=== PATIENT | female | born 1965 | race Two or more races ===

== ENCOUNTER 2024-05-11 11:42 | Emergency (ER) | payer BC ==
[~2024-05-11] VITALS: Ht 162.6 cm; Wt 73.0 kg
[2024-05-11] MEDS: SUCCINYLCHOLINE CHLORIDE 200MG/10ML IV ONE (11:47)
[2024-05-11] MEDS: ETOMIDATE 2MG/ML 10ML VIAL IV ONE (11:47)
[2024-05-11] MEDS ORDERED: MIDAZOLAM HCL 100 MG in DEXT 5% WATER 80 ML IV ONE (12:00)
[2024-05-11] MEDS ORDERED: FENTANYL 2500MCG/250ML PMX 250 ML IV ONE (12:00)
[2024-05-11] MEDS: SODIUM CHLORIDE 0.9% 500 ML IV ONE (12:09)
[2024-05-11 12:13] LABS: HEMATOCRIT. 40.2 % (36.0-48.0); MEAN CORPUSCULAR HEMOGLOBIN 35.8 pg (28.0-32.0); MEAN CORPUSCULAR HGB CONC 32.4 g/dL (31.0-37.0); MEAN CORPUSCULAR VOLUME 110.3 fL (81.0-99.0); MEAN PLATELET VOLUME 8.2 fl (7.4-10.4); PLATELET 272 x1000/uL (130-400); RED BLOOD CELL COUNT 3.65 mill/uL (4.2-5.4); RED CELL DISTRIBUTION WIDTH 14.2 % (11.6-14.6); WHITE BLOOD COUNT 14.7 x1000/uL (4.5-11.0)
[2024-05-11 12:24] LABS: INR 0.9; PARTIAL THROMBOPLASTIN TIME 27.7 sec (23.4-31.0); PROTHROMBIN TIME 10.3 sec (9.6-11.0)
[2024-05-11 12:25] LABS: CHLORIDE 109 mEq/L (98-107); POTASSIUM 3.8 mEq/L (3.5-5.1); SODIUM 141 mEq/L (136-145)
[2024-05-11 12:26] LABS: CALCIUM 9.2 mg/dL (8.7-10.4); CARBON DIOXIDE 14 mEq/L (21-32)
[2024-05-11 12:30] LABS: TROPONIN I HIGH SENSITIVITY 4 ng/L (3.0-34); UREA NITROGEN BLOOD 10 mg/dL (9-23)
[2024-05-11] MEDS ORDERED: FENTANYL CITRATE 1,000 MCG in SODIUM CHLORIDE 0.9% 80 ML IV PRN (12:30)
[2024-05-11 12:31] LABS: CREATININE 1.3 mg/dL (0.6-1.0)
[2024-05-11 12:32] LABS: GLUCOSE 256 mg/dL (70-105)
[2024-05-11 12:33] LABS: ALANINE AMINOTRANSFERASE 19 IU/L (10-49); ALBUMIN 4.2 g/dL (3.2-4.8); ASPARTATE AMINOTRANSFERASE 38 IU/L (<34); CREATINE KINASE 182 IU/L (34-145)
[2024-05-11 12:34] LABS: BILIRUBIN DIRECT 0.1 mg/dL (<=3.0); BILIRUBIN TOTAL 0.5 mg/dL (0.1-1.0); PROTEIN TOTAL 6.9 g/dL (6.0-8.3)
[2024-05-11 12:35] VITALS: PULSE 100; RESP 23; O2SAT 100
[2024-05-11 12:47] LABS: DIFFERENTIAL COMMENT 1
[2024-05-11 12:50] LABS: ETHANOL BLOOD < 10 mg/dL (<10)
[2024-05-11 12:52] LABS: LACTIC ACID 6.4 mmol/L (0.4-2.0)
[2024-05-11] MEDS: PIPERACILLIN/TAZO 3.375G/50ML 50 ML IV ONE (12:58)
[2024-05-11] MEDS ORDERED: MANNITOL 20% (20GM/100ML) BAG 500ML PREMIX IV ONE (13:00)
[2024-05-11] MEDS: MIDAZOLAM 100MG/100ML PREMIX IV PRN (13:03)
[2024-05-11 13:33] VITALS: O2SAT 97
[2024-05-11] MEDS: VANCOMYCIN 1G PREMIX 200 ML IV ONE (13:39)
[2024-05-11] MEDS: MANNITOL 20% IV NR (14:01)
[2024-05-11] MEDS: IOHEXOL-350 100 ML BOTTLE ONE (14:01)
[2024-05-11 14:23] VITALS: PULSE 90; RESP 23; O2SAT 100
[2024-05-11 14:30] VITALS: BP 108/81; PULSE 91; RESP 23; TEMP 36.72516; O2SAT 98
[2024-05-11 14:56] LABS: BG BASE EXCESS -10.2 mmol/L (-2.0-3.0); BG CARBOXYHEMOGLOBIN 0.3 % (0.5-1.5); BG DEOXYHEMOGLOBIN 2.1 % (0.0-5.0); BG FRACTION INSPIRED OXYGEN 100; BG HCO3 ACT 14.8 mmol/L (21.0-28.0); BG METHEMOGLOBIN 0.3 % (0.5-1.5); BG OXYGEN SATURATION 97.9 % (94.0-98.0); BG OXYHEMOGLOBIN 97.3 % (94.0-98.0); BG PCO2 30.1 mmHg (32.0-45.0); BG PO2 115.1 mmHg (83.0-108.0); BG SAMPLE SITE RIGHT BRACHIAL; BG TOTAL HEMOGLOBIN 11.1 g/dL (12.0-16.0); BG VENT MODE VBG - N/A
[2024-05-11 15:04] LABS: PLATELET ESTIMATE NORMAL
[2024-05-11 15:36] LABS: CLARITY URINE CLEAR (CLEAR); COLOR URINE YELLOW (YELLOW); GLUCOSE URINE 1+ (NEGATIVE); KETONES URINE 1+ (NEGATIVE); LEUKOCYTE ESTERASE URINE TRACE (NEGATIVE); NITRITE URINE POSITIVE (NEGATIVE); OCCULT BLOOD URINE NEGATIVE (NEGATIVE); PROTEIN URINE NEGATIVE (NEGATIVE); SPECIFIC GRAVITY URINE 1.036 (1.005-1.030); UROBILINOGEN URINE 0.2 E.U./dL (0.2-1.0)
[2024-05-11 16:08] LABS: *AMPHETAMINES SCREEN URINE NEGATIVE (NEGATIVE); *BARBITURATES SCREEN URINE NEGATIVE (NEGATIVE); *BENZODIAZEPINES SCREEN URINE NEGATIVE (NEGATIVE)
[2024-05-11 16:09] LABS: *COCAINE SCREEN URINE NEGATIVE (NEGATIVE); CANNABINOID URINE SCREEN NEGATIVE (NEGATIVE); ECSTASY MDMA SCREEN URINE NEGATIVE (NEGATIVE); METHADONE URINE SCREEN NEGATIVE (NEGATIVE); OPIATES URINE SCREEN PRESUMPTIVE POSITIVE (NEGATIVE); PHENCYCLIDINE URINE SCREEN NEGATIVE (NEGATIVE)
[2024-05-11 16:12] LABS: BACTERIA URINE 3+; RBC URINE 0-2 /hpf (0-2); SQUAMOUS EPITHELIAL CELL URINE FEW /lpf (RARE/1+)
== END 2024-05-11 20:18 | disposition short-term general hospital (02) ==
LOC: ER 11:42 → CANBEDREQ 13:28 → ER 20:18
DX: I46.9 Cardiac arrest, cause unspecified (principal); R51.9 Headache, unspecified; I11.9 Hypertensive heart disease without heart failure; Z20.822 Contact with and (suspected) exposure to COVID-19; Z79.899 Other long term (current) drug therapy; Z88.8 Allergy status to other drugs, medicaments and biological substances
CPT/HCPCS: 80076; 80305; 80048; 81003; 80320; 82550; 82962; 83880; 83605; 83690; 85025; 85610; 85730; 86850; 86900; 86901; 87040; 87086; 87186; 84484; 87804 ×2; 87077; 36415; 84145; 71045; 70496; 70498; 70450; 71260; 72125; 74177; 82805; 82375; 93005; 31500; 96367; 96368; 96361; 96365; 99291; 87426; 36600; Q9967; J2250; J2543; J3370; J7060; J7040; Z7610; 96375; J3010; G0480